=== PATIENT | female | born 1955 | race Caucasian/White ===

== ENCOUNTER 2018-07-11 05:36 | Emergency (ER) | payer MEDICAID ==
[~2018-07-11] VITALS: Ht 157.5 cm; Wt 63.5 kg
--- NOTE | 2018-07-11 05:36 | NUR ---
PT BIBA. TAKEN TO BED 5
[2018-07-11 05:40] VITALS: BP 142/68
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
--- NOTE | 2018-07-11 07:11 | NUR ---
RECIEVED REPORT FROM MARICEL DIOP.
[2018-07-11] MEDS ORDERED: IBUPROFEN 600 MG TAB PO ONE (07:30)
--- NOTE | 2018-07-11 07:37 | NUR ---
CALLED PHARMACY FOR MOTRIN 600MG, NO ONE ANSWERED
--- NOTE | 2018-07-11 07:39 | NUR ---
EDGAR DIOP CALLED [facility] FOR MOTRIN 600MG
[2018-07-11] MEDS ORDERED: IBUPROFEN 600 MG TAB ONE (07:55)
--- NOTE | 2018-07-11 08:33 | NUR ---
PT AT [facility] AT THIS TIME
--- NOTE | 2018-07-11 09:05 | NUR ---
PT RETURNED FROM RAD
[2018-07-11 09:34] VITALS: BP 127/65
--- NOTE | 2018-07-11 09:34 | NUR ---
DR JACOBO AT BEDSIDE
--- NOTE | 2018-07-11 09:39 | NUR ---
Patient discharged with v/s stable BY DR JACOBO. Written and verbal after care instructions given and explained. Patient alert, oriented and verbalized understanding of instructions. Ambulatory with steady gait. All questions addressed prior to discharge. ID band removed. Patient advised to follow up with PMD. Rx of NAPROSYN given. Patient educated on indication of medication including possible reaction and side effects. Opportunity to ask questions provided and answered.
== END 2018-07-11 09:39 | disposition home or self-care (01) ==
LOC: MED 05:36
DX: S13.9XXA Sprain of joints and ligaments of unspecified parts of neck, initial encounter (principal); S33.5XXA Sprain of ligaments of lumbar spine, initial encounter; S83.92XA Sprain of unspecified site of left knee, initial encounter; E11.9 Type 2 diabetes mellitus without complications; I10 Essential (primary) hypertension; Z90.710 Acquired absence of both cervix and uterus; Z88.5 Allergy status to narcotic agent; V89.2XXA Person injured in unspecified motor-vehicle accident, traffic, initial encounter; Y93.89 Activity, other specified; Y92.410 Unspecified street and highway as the place of occurrence of the external cause; Y99.8 Other external cause status
CPT/HCPCS: 72040; 72100; 73562; 99283